=== PATIENT | female | born 1990 | race African-American/Black ===

== ENCOUNTER 2018-10-02 02:01 | Emergency (ER) | payer MEDICAID ==
[~2018-10-02] VITALS: Ht 180.3 cm; Wt 70.0 kg
[2018-10-02] MEDS ORDERED: IBUPROFEN 600MG TABLET PO ONE (03:30)
[2018-10-02 09:46] VITALS: BP 105/50
== END 2018-10-02 10:44 | disposition home or self-care (01) ==
LOC: ER 02:37
DX: S10.93XA Contusion of unspecified part of neck, initial encounter (principal); F31.9 Bipolar disorder, unspecified; Z88.0 Allergy status to penicillin; Z59.0 Homelessness; X58.XXXA Exposure to other specified factors, initial encounter; Y93.89 Activity, other specified; Y92.89 Other specified places as the place of occurrence of the external cause; Y99.8 Other external cause status
CPT/HCPCS: 99283; Z7610